=== PATIENT | female | born 1945 | race Caucasian/White ===

== ENCOUNTER 2019-10-06 19:07 | Emergency (ER) | payer MEDICARE ==
[~2019-10-06] VITALS: Ht 157.5 cm; Wt 68.2 kg
[~2019-10-06 19:07] MED LIST: CA C1TAB60 PO; CHOL100011 PO; CLON-364 PO; CYCL-259 PO; DULO20CA45 PO; GABAPENTIN PO; LANS15CA60 PO; LEVO50TA5 PO; LORA10CA PO; MONT10TA11 PO; OXYC-302 PO; TRAM50TA2 PO; TRAV5DRO EACHEYE
--- NOTE | 2019-10-06 19:31 | NUR ---
DELLA VELASCO. PT STATES THAT SHE BEGAN HAVING BACK PAIN TODAY. HAS HX OF COMPLEX REGIONAL PAIN SYNDROME AND TYPICALLY HAS FOOT PAIN, NOT BACK PAIN. PT STATES THAT SHE RAN OUT OF HER PAIN MEDICATION SO SHE DID NOT TAKE ANY PAIN MEDICATION TODAY. PT PLACED ON MONITOR AND CALL FLETCHER GIVEN TO PT. VS STABLE AT THIS TIME. WILL CONTINUE TO MONITOR PT.
[2019-10-06] MEDS ORDERED: ONDANSETRON 2MG/ML, 2ML IVPush ONE (20:00)
[2019-10-06] MEDS ORDERED: HYDROmorphone 1 MG/ML, 1ML INJ ONE ×2 (20:07→21:07)
[2019-10-06] MEDS ORDERED: ONDANSETRON 2MG/ML, 2ML ONE (20:08)
[2019-10-06] MEDS: HYDROmorphone 2 MG/ML, 1ML IVPush PRN ×2 (20:10→21:10)
[2019-10-06 20:13] LABS: BASOPHILS # (AUTO) 0.06 x10^3/uL (0-0.1); BASOPHILS % (AUTO) 1 % (0-1); EOSINOPHILS # (AUTO) 0.19 x10^3/uL (0-0.4); EOSINOPHILS % (AUTO) 3 % (1-7); LYMPHOCYTES # (AUTO) 2.28 x10^3/uL (1-3.4); LYMPHOCYTES % (AUTO) 32 % (22-44); MD NO; MEAN CORPUSCULAR HEMOGLOBIN 30.2 pg (27.0-34.8); MEAN CORPUSCULAR HGB CONC 33.2 g/dL (32.4-35.8); MONOCYTES % (AUTO) 6 % (2-9); NEUTROPHILS # (AUTO) 4.22 x10^3/uL (1.8-6.8); NEUTROPHILS % (AUTO) 59 % (42-75); PLATELET COUNT 296 x10^3/uL (130-400); RED CELL DISTRIBUTION WIDTH 13.4 % (9.6-15.2)
[2019-10-06 20:24] LABS: ALANINE AMINOTRANSFERASE 14 U/L (12-78); ALBUMIN 3.4 g/dL (3.4-5.0); ANION GAP 7 mmol/L (5-15); CALCIUM 8.7 mg/dL (8.5-10.1); CHLORIDE 108 mmol/L (98-107); CREATININE 0.97 mg/dL (0.55-1.02)
[2019-10-06 20:26] LABS: ALKALINE PHOSPHATASE 125 U/L (45-117); BILIRUBIN,TOTAL 0.4 mg/dL (0.2-1.0); TOTAL PROTEIN 7.2 g/dL (6.4-8.2)
--- NOTE | 2019-10-06 22:42 | NUR ---
PT AMBULATED WITH A WALKER. PT STATES THAT SHE FEELS "MORE SECURE" WALKING WITH A WALKER AND THAT SHE HAS ONE AT HOME. PT STATES THAT SHE FEELS "LOOPY BECAUSE OF THE PAIN MEDICATION BUT OTHERWISE FINE AND READY TO GO HOME". STANDBY ASSISTANCE WITH WALKER. PT STATES THAT HER IS AT HOME AND WILL HELP WATCH HER TONIGHT. INFORMED
[2019-10-06 22:43] VITALS: BP 115/79
== END 2019-10-06 23:18 | disposition home or self-care (01) ==
LOC: ED 20:15
DX: S39.012A Strain of muscle, fascia and tendon of lower back, initial encounter (principal); M54.41 Lumbago with sciatica, right side; M19.90 Unspecified osteoarthritis, unspecified site; X58.XXXA Exposure to other specified factors, initial encounter; Y93.89 Activity, other specified; Y92.89 Other specified places as the place of occurrence of the external cause; Y99.8 Other external cause status
CPT/HCPCS: 36415; 72110; 80053; 85025; 96374; 96375; 96376; 99284; J1170; J2405

== ENCOUNTER 2019-10-07 20:00 | Inpatient (IN) | payer MEDICARE ==
[~2019-10-07] VITALS: Ht 154.9 cm; Wt 81.2 kg
--- NOTE | 2019-10-07 20:31 | NUR ---
PT STATES THAT SHE HAS NOT BEEN ABLE TO WALK WITH HER R LEG. PT HAS HX OF CRPS AND WAS SEEN YESTERDAY FOR R SIDED BACK PAIN AND R LEG WEAKNESS. PT STATED SHE FELT BETTER WHEN SHE WAS DISCHARGED BUT THAT TODAY WHEN SHE WAS GETTING OUT OF BED SHE WAS NOT ABLE TO MOVE WITHOUT HER R LEG "COLLAPSING" ON HER. PT STATES SHE HAS INCREASED WEAKNESS AND TINGLING IN HER R LEG. PT STATES SHE USUALLY HAS TINGLING AND PAIN IN HER FEET DUE TO CRPS, HOWEVER, PT DESCRIBES THIS PAIN "DIFFERENT THAN NORMAL". PT PLACED ON MONITOR AND PA AT BEDSIDE. VS STABLE. WILL CONTINUE TO MONITOR PT.
[2019-10-07] MEDS ORDERED: HYDROmorphone 1 MG/ML, 1ML INJ ONE (20:49)
[2019-10-07] MEDS ORDERED: CYCLOBENZAPRINE 10 MG TABLET ONE (20:49)
[2019-10-07] MEDS ORDERED: ONDANSETRON 2MG/ML, 2ML ONE (20:49)
[2019-10-07 20:50] LABS: BASOPHILS # (AUTO) 0.06 x10^3/uL (0-0.1); BASOPHILS % (AUTO) 1 % (0-1); EOSINOPHILS # (AUTO) 0.18 x10^3/uL (0-0.4); EOSINOPHILS % (AUTO) 3 % (1-7); LYMPHOCYTES # (AUTO) 2.24 x10^3/uL (1-3.4); LYMPHOCYTES % (AUTO) 32 % (22-44); MD NO; MEAN CORPUSCULAR HEMOGLOBIN 30.1 pg (27.0-34.8); MEAN CORPUSCULAR VOLUME 91.3 fL (80-100); MEAN PLATELET VOLUME 7.2 fL (7.4-10.4); MONOCYTES # (AUTO) 0.41 x10^3/uL (0.2-0.8); MONOCYTES % (AUTO) 6 % (2-9); NEUTROPHILS # (AUTO) 4.08 x10^3/uL (1.8-6.8); NEUTROPHILS % (AUTO) 59 % (42-75); PLATELET COUNT 324 x10^3/uL (130-400); RED BLOOD COUNT 4.68 x10^6/uL (3.82-5.3); RED CELL DISTRIBUTION WIDTH 13.9 % (9.6-15.2)
[2019-10-07] MEDS ORDERED: CYCLOBENZAPRINE 10 MG TABLET PO ONE (21:00)
[2019-10-07] MEDS ORDERED: HYDROmorphone 1 MG/ML, 1ML INJ IVPush PRN (21:00)
[2019-10-07] MEDS ORDERED: ONDANSETRON 2MG/ML, 2ML IVPush ONE (21:00)
[2019-10-07] MEDS ORDERED: SODIUM CHLORIDE FLUSH 10ML SYR IVF ONE (21:00)
[2019-10-07 21:04] LABS: ALANINE AMINOTRANSFERASE 17 U/L (12-78); ALBUMIN 3.4 g/dL (3.4-5.0); ANION GAP 2 mmol/L (5-15); CALCIUM 8.9 mg/dL (8.5-10.1); CHLORIDE 108 mmol/L (98-107); CREATININE 1.41 mg/dL (0.55-1.02)
[2019-10-07 21:06] LABS: ALKALINE PHOSPHATASE 129 U/L (45-117); BILIRUBIN,TOTAL 0.3 mg/dL (0.2-1.0); TOTAL PROTEIN 7.8 g/dL (6.4-8.2)
[2019-10-07] MEDS ORDERED: ONDANSETRON 2MG/ML, 2ML IVPush PRN ×2 (22:00)
[2019-10-07] MEDS ORDERED: POLYETHYLENE GLYCOL 17 GM PACKET PO PRN (22:00)
[2019-10-07] MEDS ORDERED: OXYcodone/APAP 5/325MG TABLET PO PRN (22:00)
[2019-10-07] MEDS ORDERED: BISACODYL 10 MG SUPP PR PRN (22:00)
[2019-10-07] MEDS ORDERED: MORPHINE SULFATE 4 MG/ML, 1ML IVPush PRN (22:00)
[2019-10-07] MEDS ORDERED: hydrALAzine 20 MG/ML, 1ML IVPush PRN (22:00)
--- NOTE | 2019-10-07 22:16 | NUR ---
REPORT GIVEN TO ALEISHA DEL ROSARIO
[2019-10-07] MEDS ORDERED: SODIUM CHLORIDE 0.9% 1,000 ML IV SCH (22:30)
[2019-10-07] MEDS: HEPARIN 5,000 UNITS/ML, 1ML SQ SCH (23:03)
[2019-10-07 23:13] VITALS: BP 135/78
[2019-10-08 00:40] VITALS: BP 121/58
[2019-10-08] MEDS: HYDROmorphone 2 MG/ML, 1ML IVPush PRN ×6 (01:46→17:29)
[2019-10-08 05:01] LABS: MICROSCOPIC INDICATED
[2019-10-08] MEDS: HEPARIN 5,000 UNITS/ML, 1ML SQ SCH ×3 (05:30→21:16)
[2019-10-08 05:44] LABS: ANION GAP 7 mmol/L (5-15); CALCIUM 8.3 mg/dL (8.5-10.1); CHLORIDE 109 mmol/L (98-107); CREATININE 1.18 mg/dL (0.55-1.02)
[2019-10-08 07:40] VITALS: BP 129/65
[2019-10-08] MEDS: SENNA/DOCUSATE TABLET PO SCH (08:18)
[2019-10-08] MEDS: DULOXETINE 20 MG CAPSULE.DR PO SCH (08:18)
[2019-10-08] MEDS: PANTOPRAZOLE 20MG TABLET PO SCH ×2 (08:18→21:17)
[2019-10-08] MEDS: LEVOTHYROXINE 50 MCG TABLET PO SCH (08:19)
[2019-10-08] MEDS: CHOLECALCIFEROL 1,000 UNIT TABLET PO SCH (08:42)
[2019-10-08 13:56] VITALS: BP 127/74
[2019-10-08 20:11] VITALS: BP 108/70
[2019-10-08] MEDS: morphine SULFATE 10 MG/ML, 1ML IVPush PRN (21:17)
[2019-10-08] MEDS ORDERED: GABAPENTIN 300 MG CAPSULE PO ONE (21:30)
[2019-10-08] MEDS: SODIUM CHLORIDE 0.9% 1,000 ML IV SCH (22:30)
[2019-10-09 03:00] VITALS: BP 132/73
[2019-10-09] MEDS: HEPARIN 5,000 UNITS/ML, 1ML SQ SCH ×3 (05:33→21:38)
[2019-10-09 05:38] LABS: ANION GAP 6 mmol/L (5-15); CALCIUM 8.2 mg/dL (8.5-10.1); CHLORIDE 111 mmol/L (98-107)
[2019-10-09 05:40] LABS: CREATININE 0.95 mg/dL (0.55-1.02)
[2019-10-09 05:42] LABS: BASOPHILS # (AUTO) 0.02 x10^3/uL (0-0.1); BASOPHILS % (AUTO) 0 % (0-1); EOSINOPHILS # (AUTO) 0.16 x10^3/uL (0-0.4); EOSINOPHILS % (AUTO) 3 % (1-7); LYMPHOCYTES # (AUTO) 1.98 x10^3/uL (1-3.4); LYMPHOCYTES % (AUTO) 32 % (22-44); MD NO; MEAN CORPUSCULAR HEMOGLOBIN 29.8 pg (27.0-34.8); MEAN CORPUSCULAR HGB CONC 32.6 g/dL (32.4-35.8); MEAN CORPUSCULAR VOLUME 91.4 fL (80-100); MONOCYTES # (AUTO) 0.37 x10^3/uL (0.2-0.8); MONOCYTES % (AUTO) 6 % (2-9); NEUTROPHILS # (AUTO) 3.61 x10^3/uL (1.8-6.8); NEUTROPHILS % (AUTO) 59 % (42-75); PLATELET COUNT 242 x10^3/uL (130-400); RED BLOOD COUNT 3.98 x10^6/uL (3.82-5.3); RED CELL DISTRIBUTION WIDTH 13.4 % (9.6-15.2)
[2019-10-09 06:47] VITALS: BP 121/73
[2019-10-09] MEDS: LEVOTHYROXINE 50 MCG TABLET PO SCH (08:47)
[2019-10-09] MEDS: SENNA/DOCUSATE TABLET PO SCH (08:48)
[2019-10-09] MEDS: PANTOPRAZOLE 20MG TABLET PO SCH ×2 (08:48→21:37)
[2019-10-09] MEDS: CHOLECALCIFEROL 1,000 UNIT TABLET PO SCH (08:48)
[2019-10-09] MEDS: DULOXETINE 20 MG CAPSULE.DR PO SCH (08:48)
[2019-10-09 13:40] VITALS: BP 125/66
[2019-10-09] MEDS ORDERED: GADOTERATE 10 MMOL/20 ML SYR ONE (14:30)
[2019-10-09] MEDS: SODIUM CHLORIDE 0.9% 1,000 ML IV SCH (17:22)
[2019-10-09 19:06] VITALS: BP 143/77
[2019-10-09] MEDS: morphine SULFATE 10 MG/ML, 1ML IVPush PRN (21:49)
[2019-10-10 01:44] VITALS: BP 151/81
[2019-10-10] MEDS: HEPARIN 5,000 UNITS/ML, 1ML SQ SCH ×3 (05:18→20:52)
[2019-10-10 05:38] LABS: ANION GAP 8 mmol/L (5-15); CALCIUM 8.8 mg/dL (8.5-10.1); CHLORIDE 109 mmol/L (98-107); CREATININE 0.92 mg/dL (0.55-1.02)
[2019-10-10 05:46] LABS: BASOPHILS # (AUTO) 0.02 x10^3/uL (0-0.1); BASOPHILS % (AUTO) 0 % (0-1); EOSINOPHILS # (AUTO) 0.15 x10^3/uL (0-0.4); EOSINOPHILS % (AUTO) 3 % (1-7); LYMPHOCYTES # (AUTO) 1.85 x10^3/uL (1-3.4); LYMPHOCYTES % (AUTO) 33 % (22-44); MD NO; MEAN CORPUSCULAR HEMOGLOBIN 30.1 pg (27.0-34.8); MEAN CORPUSCULAR HGB CONC 32.9 g/dL (32.4-35.8); MEAN CORPUSCULAR VOLUME 91.5 fL (80-100); MEAN PLATELET VOLUME 7.3 fL (7.4-10.4); MONOCYTES # (AUTO) 0.38 x10^3/uL (0.2-0.8); MONOCYTES % (AUTO) 7 % (2-9); NEUTROPHILS # (AUTO) 3.14 x10^3/uL (1.8-6.8); NEUTROPHILS % (AUTO) 57 % (42-75); PLATELET COUNT 241 x10^3/uL (130-400); RED BLOOD COUNT 3.94 x10^6/uL (3.82-5.3); RED CELL DISTRIBUTION WIDTH 13.3 % (9.6-15.2)
[2019-10-10 06:51] VITALS: BP 147/72
[2019-10-10] MEDS: morphine SULFATE 10 MG/ML, 1ML IVPush PRN (08:53)
[2019-10-10] MEDS: DULOXETINE 20 MG CAPSULE.DR PO SCH (08:57)
[2019-10-10] MEDS: LEVOTHYROXINE 50 MCG TABLET PO SCH (08:57)
[2019-10-10] MEDS: PANTOPRAZOLE 20MG TABLET PO SCH ×2 (08:57→20:52)
[2019-10-10] MEDS: SENNA/DOCUSATE TABLET PO SCH (09:01)
[2019-10-10] MEDS: CHOLECALCIFEROL 1,000 UNIT TABLET PO SCH (09:05)
[2019-10-10 12:50] VITALS: BP 129/71
[2019-10-10] MEDS: OXYcodone/APAP 5/325MG TABLET PO PRN ×2 (13:01→18:44)
[2019-10-10] MEDS: MORPHINE SULFATE 4 MG/ML, 1ML IVPush PRN (16:07)
[2019-10-10 20:52] VITALS: BP 148/78
[2019-10-11] MEDS: MORPHINE SULFATE 4 MG/ML, 1ML IVPush PRN (00:06)
[2019-10-11] MEDS: OXYcodone/APAP 5/325MG TABLET PO PRN ×4 (01:18→21:38)
[2019-10-11] MEDS ORDERED: GABAPENTIN 300 MG CAPSULE PO ONE (02:00)
[2019-10-11 03:17] VITALS: BP 157/91
[2019-10-11] MEDS: HEPARIN 5,000 UNITS/ML, 1ML SQ SCH ×3 (06:00→21:39)
[2019-10-11 07:08] VITALS: BP 150/85
[2019-10-11] MEDS: CHOLECALCIFEROL 1,000 UNIT TABLET PO SCH (09:30)
[2019-10-11] MEDS: LEVOTHYROXINE 50 MCG TABLET PO SCH (09:30)
[2019-10-11] MEDS: PANTOPRAZOLE 20MG TABLET PO SCH ×2 (09:31→21:37)
[2019-10-11] MEDS: DULOXETINE 20 MG CAPSULE.DR PO SCH ×2 (09:31→11:46)
[2019-10-11] MEDS: LIDODERM 5% PATCH TD SCH (09:32)
[2019-10-11] MEDS: SENNA/DOCUSATE TABLET PO SCH (09:32)
[2019-10-11] MEDS ORDERED: GABAPENTIN 300 MG CAPSULE PO SCH (10:00)
[2019-10-11 12:50] VITALS: BP 112/71
[2019-10-11 16:30] LABS: INTERNATIONAL NORMALIZED RATIO 0.92 (0.93-1.1); PROTHROMBIN TIME 9.7 Seconds (9.6-11.5)
[2019-10-11 21:31] VITALS: BP 152/69
[2019-10-11] MEDS: GABAPENTIN 300 MG CAPSULE PO SCH (21:37)
[2019-10-12 01:30] VITALS: BP 143/76
[2019-10-12] MEDS: HEPARIN 5,000 UNITS/ML, 1ML SQ SCH ×3 (05:16→22:00)
[2019-10-12] MEDS: OXYcodone/APAP 5/325MG TABLET PO PRN (07:22)
[2019-10-12] MEDS: SENNA/DOCUSATE TABLET PO SCH (07:24)
[2019-10-12] MEDS: CHOLECALCIFEROL 1,000 UNIT TABLET PO SCH (07:24)
[2019-10-12] MEDS ORDERED: methylPREDNISolone *ACETATE* 40 MG/ML ONE (07:26)
[2019-10-12] MEDS ORDERED: VANCOMYCIN 1,000 MG ONE (07:26)
[2019-10-12] MEDS ORDERED: BACITRACIN OINT 500U/GM, 15 GM ONE (07:26)
[2019-10-12] MEDS ORDERED: BACITRACIN 50,000 UNIT ONE (07:26)
[2019-10-12] MEDS ORDERED: BUPIVACAINE/PF-EPI 0.5% 1:200K ONE (07:26)
[2019-10-12] MEDS: DULOXETINE 20 MG CAPSULE.DR PO SCH (07:29)
[2019-10-12] MEDS: LEVOTHYROXINE 50 MCG TABLET PO SCH (07:29)
[2019-10-12] MEDS: PANTOPRAZOLE 20MG TABLET PO SCH ×2 (07:29→22:59)
[2019-10-12] MEDS: LIDODERM 5% PATCH TD SCH (07:30)
[2019-10-12 07:40] VITALS: BP 174/85
[2019-10-12] MEDS ORDERED: CHLORHEXIDINE 15 ML UDC ONE (12:19)
[2019-10-12] MEDS ORDERED: ACETAMINOPHEN 500 MG TABLET PO ONE (12:30)
[2019-10-12] MEDS ORDERED: GABAPENTIN 300 MG CAPSULE PO ONE (12:30)
[2019-10-12] MEDS ORDERED: CHLORHEXIDINE 15 ML UDC MM ONE (12:30)
[2019-10-12] MEDS ORDERED: MIDAZOLAM 1 MG/ML, 2ML ONE (13:09)
[2019-10-12] MEDS ORDERED: FENTANYL PF 250 MCG/5ML ONE ×2 (13:09→15:47)
[2019-10-12] MEDS ORDERED: CLINDAMYCIN 150 MG/ML, 6ML ONE (14:02)
[2019-10-12] MEDS ORDERED: DIAZEPAM 5 MG/ML, 2ML IVPush PRN (14:30)
[2019-10-12] MEDS ORDERED: ALBUTEROL SULFATE 2.5 MG/3 ML NPPB PRN (14:30)
[2019-10-12] MEDS ORDERED: MEPERIDINE/PF 25MG/0.5ML IVPush PRN (14:30)
[2019-10-12] MEDS ORDERED: LABETALOL 5MG/ML, 20ML IV PRN (14:30)
[2019-10-12] MEDS ORDERED: PROMETHAZINE 25 MG/ML, 1ML IV PRN (14:30)
[2019-10-12] MEDS ORDERED: FENTANYL PF 100 MCG/2ML IV PRN (14:30)
[2019-10-12] MEDS ORDERED: hydrALAzine 20 MG/ML, 1ML IV PRN (14:30)
[2019-10-12] MEDS ORDERED: OXYcodone 5 MG/5 ML ORAL.SOL UDC PO PRN (14:30)
[2019-10-12] MEDS ORDERED: VANCOMYCIN 1,000 MG IM ONE (14:56)
[2019-10-12] MEDS ORDERED: THROMBIN 5,000 UNIT VIAL TP ONE (17:58)
[2019-10-12] MEDS ORDERED: GLYCOPYRROLATE 0.2MG/1ML, 5ML ONE (18:40)
[2019-10-12] MEDS ORDERED: DEXAMETHASONE 4 MG/ML, 1ML ONE (18:40)
[2019-10-12] MEDS ORDERED: CEFAZOLIN 1,000 MG ONE (18:40)
[2019-10-12] MEDS ORDERED: ONDANSETRON 2MG/ML, 2ML ONE (18:40)
[2019-10-12] MEDS ORDERED: NEOSTIGMINE 1 MG/ML, 10ML ONE (18:40)
[2019-10-12] MEDS ORDERED: SUCCINYLCHOLINE 20 MG/ML, 10ML ONE (18:40)
[2019-10-12] MEDS ORDERED: ROCURONIUM 10MG/ML,5ML ONE (18:40)
[2019-10-12] MEDS ORDERED: PROPOFOL 10 MG/ML, 20ML ONE (18:40)
[2019-10-12] MEDS ORDERED: SENNA/DOCUSATE TABLET PO PRN (19:00)
[2019-10-12] MEDS ORDERED: ONDANSETRON 2MG/ML, 2ML IVPush PRN (19:00)
[2019-10-12] MEDS ORDERED: MAGNESIUM HYDROXIDE 8%, 30ML UDC PO PRN (19:00)
[2019-10-12] MEDS ORDERED: PHARMACY MAY ADJ FOR RENAL FX MC PRN (19:00)
[2019-10-12] MEDS ORDERED: DIPHENHYDRAMINE 50 MG CAPSULE PO PRN (19:00)
[2019-10-12] MEDS ORDERED: BISACODYL 10 MG SUPP PR PRN (19:00)
[2019-10-12] MEDS ORDERED: PROMETHAZINE 25 MG/ML, 1ML ONE (19:06)
[2019-10-12] MEDS ORDERED: HYDROmorphone 1 MG/ML, 1ML INJ ONE ×2 (19:06→20:17)
[2019-10-12] MEDS: HYDROmorphone 2 MG/ML, 1ML IVPush PRN ×4 (19:08→20:27)
[2019-10-12] MEDS ORDERED: OXYcodone 5 MG/5 ML ORAL.SOL UDC ONE (19:55)
[2019-10-12] MEDS ORDERED: DIAZEPAM 5 MG/ML, 2ML ONE (20:11)
[2019-10-12] MEDS ORDERED: HYDROmorphone PCA 30 MG/30 ML IV PRN (21:00)
[2019-10-12] MEDS: CYCLOBENZAPRINE 10 MG TABLET PO SCH (22:59)
[2019-10-12] MEDS: GABAPENTIN 300 MG CAPSULE PO SCH (22:59)
[2019-10-12] MEDS: CLINDAMYCIN PMX 600MG/50ML 50 ML IV SCH (23:16)
[2019-10-13] VITALS (7 sets, daily range): BP systolic 90–107; BP diastolic 55–72
[2019-10-13] MEDS: OXYcodone/APAP 5/325MG TABLET PO PRN ×4 (00:05→22:03)
[2019-10-13 05:19] LABS: BASOPHILS # (AUTO) 0.02 x10^3/uL (0-0.1); BASOPHILS % (AUTO) 0 % (0-1); EOSINOPHILS % (AUTO) 0 % (1-7); LYMPHOCYTES # (AUTO) 0.99 x10^3/uL (1-3.4); LYMPHOCYTES % (AUTO) 11 % (22-44); MD NO; MEAN CORPUSCULAR HEMOGLOBIN 29.8 pg (27.0-34.8); MEAN CORPUSCULAR HGB CONC 32.4 g/dL (32.4-35.8); MEAN PLATELET VOLUME 6.7 fL (7.4-10.4); MONOCYTES # (AUTO) 0.52 x10^3/uL (0.2-0.8); MONOCYTES % (AUTO) 6 % (2-9); NEUTROPHILS # (AUTO) 7.79 x10^3/uL (1.8-6.8); NEUTROPHILS % (AUTO) 84 % (42-75); PLATELET COUNT 232 x10^3/uL (130-400); RED BLOOD COUNT 3.81 x10^6/uL (3.82-5.3); RED CELL DISTRIBUTION WIDTH 14.3 % (9.6-15.2)
[2019-10-13 05:26] LABS: ANION GAP 3 mmol/L (5-15); CALCIUM 8.1 mg/dL (8.5-10.1); CHLORIDE 105 mmol/L (98-107); CREATININE 1.15 mg/dL (0.55-1.02)
[2019-10-13] MEDS: CYCLOBENZAPRINE 10 MG TABLET PO SCH ×3 (05:58→23:54)
[2019-10-13] MEDS: CLINDAMYCIN PMX 600MG/50ML 50 ML IV SCH ×3 (07:52→23:54)
[2019-10-13] MEDS: DULOXETINE 20 MG CAPSULE.DR PO SCH (11:09)
[2019-10-13] MEDS: LEVOTHYROXINE 50 MCG TABLET PO SCH (11:10)
[2019-10-13] MEDS: PANTOPRAZOLE 20MG TABLET PO SCH ×2 (11:10→19:51)
[2019-10-13] MEDS: CHOLECALCIFEROL 1,000 UNIT TABLET PO SCH (11:10)
[2019-10-13] MEDS: SENNA/DOCUSATE TABLET PO SCH (11:10)
[2019-10-13] MEDS: LIDODERM 5% PATCH TD SCH (11:11)
[2019-10-13] MEDS: SODIUM CHLORIDE 0.9% 1,000 ML IV SCH ×2 (14:30→23:54)
[2019-10-13] MEDS: GABAPENTIN 300 MG CAPSULE PO SCH (19:50)
[2019-10-14 00:06] VITALS: BP 95/68
[2019-10-14] MEDS: OXYcodone/APAP 5/325MG TABLET PO PRN ×2 (05:19→16:38)
[2019-10-14 05:49] LABS: ANION GAP 5 mmol/L (5-15); CHLORIDE 107 mmol/L (98-107); CREATININE 1.38 mg/dL (0.55-1.02)
[2019-10-14 05:54] LABS: BASOPHILS # (AUTO) 0.02 x10^3/uL (0-0.1); BASOPHILS % (AUTO) 0 % (0-1); EOSINOPHILS # (AUTO) 0.15 x10^3/uL (0-0.4); EOSINOPHILS % (AUTO) 2 % (1-7); LYMPHOCYTES # (AUTO) 1.45 x10^3/uL (1-3.4); LYMPHOCYTES % (AUTO) 19 % (22-44); MD NO; MEAN CORPUSCULAR HEMOGLOBIN 31.1 pg (27.0-34.8); MEAN CORPUSCULAR HGB CONC 33.5 g/dL (32.4-35.8); MEAN CORPUSCULAR VOLUME 92.7 fL (80-100); MEAN PLATELET VOLUME 7.2 fL (7.4-10.4); MONOCYTES # (AUTO) 0.55 x10^3/uL (0.2-0.8); MONOCYTES % (AUTO) 7 % (2-9); NEUTROPHILS % (AUTO) 71 % (42-75); PLATELET COUNT 195 x10^3/uL (130-400); RED BLOOD COUNT 3.13 x10^6/uL (3.82-5.3); RED CELL DISTRIBUTION WIDTH 14.3 % (9.6-15.2)
[2019-10-14 06:42] VITALS: BP 115/68
[2019-10-14] MEDS: LEVOTHYROXINE 50 MCG TABLET PO SCH (08:07)
[2019-10-14] MEDS: DULOXETINE 20 MG CAPSULE.DR PO SCH (08:07)
[2019-10-14] MEDS: PANTOPRAZOLE 20MG TABLET PO SCH ×2 (08:07→21:15)
[2019-10-14] MEDS: CHOLECALCIFEROL 1,000 UNIT TABLET PO SCH (08:08)
[2019-10-14] MEDS: CLINDAMYCIN PMX 600MG/50ML 50 ML IV SCH ×2 (08:08→15:35)
[2019-10-14] MEDS: SENNA/DOCUSATE TABLET PO SCH (08:09)
[2019-10-14] MEDS: LIDODERM 5% PATCH TD SCH (08:09)
[2019-10-14] MEDS: CYCLOBENZAPRINE 10 MG TABLET PO SCH ×2 (08:12→15:35)
[2019-10-14] MEDS: SODIUM CHLORIDE 0.9% 1,000 ML IV SCH ×2 (10:58→21:14)
[2019-10-14] MEDS ORDERED: SODIUM CHLORIDE 0.9%, 250ML IVBOLUS ONE (11:00)
[2019-10-14 12:06] VITALS: BP 116/70
[2019-10-14 16:03] LABS: CHLORIDE,URINE RANDOM 63 mmol/L; POTASSIUM,URINE RANDOM 20 mmol/L; SODIUM,URINE RANDOM 54 mmol/L
[2019-10-14 18:17] VITALS: BP 111/66
[2019-10-14] MEDS: GABAPENTIN 300 MG CAPSULE PO SCH (21:15)
[2019-10-15 00:02] VITALS: BP 131/70
[2019-10-15] MEDS: CYCLOBENZAPRINE 10 MG TABLET PO SCH (00:04)
[2019-10-15 05:03] LABS: BASOPHILS # (AUTO) 0.05 x10^3/uL (0-0.1); BASOPHILS % (AUTO) 1 % (0-1); EOSINOPHILS # (AUTO) 0.15 x10^3/uL (0-0.4); EOSINOPHILS % (AUTO) 2 % (1-7); LYMPHOCYTES # (AUTO) 1.08 x10^3/uL (1-3.4); LYMPHOCYTES % (AUTO) 14 % (22-44); MD NO; MEAN CORPUSCULAR HEMOGLOBIN 30.3 pg (27.0-34.8); MEAN CORPUSCULAR HGB CONC 32.6 g/dL (32.4-35.8); MEAN CORPUSCULAR VOLUME 92.7 fL (80-100); MEAN PLATELET VOLUME 7.6 fL (7.4-10.4); MONOCYTES # (AUTO) 0.57 x10^3/uL (0.2-0.8); MONOCYTES % (AUTO) 8 % (2-9); NEUTROPHILS # (AUTO) 5.73 x10^3/uL (1.8-6.8); NEUTROPHILS % (AUTO) 76 % (42-75); PLATELET COUNT 178 x10^3/uL (130-400); RED BLOOD COUNT 3.05 x10^6/uL (3.82-5.3); RED CELL DISTRIBUTION WIDTH 14.5 % (9.6-15.2)
[2019-10-15 05:08] LABS: ANION GAP 5 mmol/L (5-15); CALCIUM 8.2 mg/dL (8.5-10.1); CHLORIDE 107 mmol/L (98-107)
[2019-10-15] MEDS: CLINDAMYCIN PMX 600MG/50ML 50 ML IV SCH ×3 (06:16→16:52)
[2019-10-15] MEDS: SODIUM CHLORIDE 0.9% 1,000 ML IV SCH ×2 (06:18→16:53)
[2019-10-15 06:42] VITALS: BP 139/78
[2019-10-15] MEDS: DULOXETINE 20 MG CAPSULE.DR PO SCH (08:11)
[2019-10-15] MEDS: SENNA/DOCUSATE TABLET PO SCH (08:11)
[2019-10-15] MEDS: LEVOTHYROXINE 50 MCG TABLET PO SCH (08:11)
[2019-10-15] MEDS: LIDODERM 5% PATCH TD SCH (08:12)
[2019-10-15] MEDS: CHOLECALCIFEROL 1,000 UNIT TABLET PO SCH (08:13)
[2019-10-15] MEDS: PANTOPRAZOLE 20MG TABLET PO SCH ×2 (08:29→19:40)
[2019-10-15] MEDS ORDERED: TIZANIDINE 4MG TABLET PO PRN (09:30)
[2019-10-15 12:08] VITALS: BP 135/76
--- NOTE | 2019-10-15 14:38 | NUR ---
Rec: PHLEBOTOMY DIRECTOR intervention in a [facility]. Addendum: 10/15/19 at 1438 by Terrie KAISER Amended: Links added.
[2019-10-15] MEDS: OXYcodone/APAP 5/325MG TABLET PO PRN (19:40)
[2019-10-15] MEDS: GABAPENTIN 300 MG CAPSULE PO SCH (19:40)
[2019-10-15] MEDS: LIDODERM REMOVE PATCH NOTE XX SCH (19:41)
[2019-10-15 19:48] VITALS: BP 148/74
[2019-10-16 01:49] VITALS: BP 125/81
[2019-10-16] MEDS: SODIUM CHLORIDE 0.9% 1,000 ML IV SCH ×2 (02:46→15:55)
[2019-10-16] MEDS: OXYcodone/APAP 5/325MG TABLET PO PRN ×3 (04:44→19:46)
[2019-10-16 05:25] LABS: BASOPHILS # (AUTO) 0.05 x10^3/uL (0-0.1); BASOPHILS % (AUTO) 1 % (0-1); EOSINOPHILS % (AUTO) 1 % (1-7); LYMPHOCYTES # (AUTO) 1.22 x10^3/uL (1-3.4); LYMPHOCYTES % (AUTO) 16 % (22-44); MD NO; MEAN CORPUSCULAR HEMOGLOBIN 30.4 pg (27.0-34.8); MEAN CORPUSCULAR HGB CONC 33.1 g/dL (32.4-35.8); MEAN CORPUSCULAR VOLUME 91.9 fL (80-100); MEAN PLATELET VOLUME 7.7 fL (7.4-10.4); MONOCYTES % (AUTO) 8 % (2-9); NEUTROPHILS # (AUTO) 5.49 x10^3/uL (1.8-6.8); NEUTROPHILS % (AUTO) 74 % (42-75); PLATELET COUNT 177 x10^3/uL (130-400); RED BLOOD COUNT 3.09 x10^6/uL (3.82-5.3); RED CELL DISTRIBUTION WIDTH 13.9 % (9.6-15.2)
[2019-10-16 05:26] LABS: ANION GAP 5 mmol/L (5-15); CALCIUM 8.5 mg/dL (8.5-10.1); CHLORIDE 106 mmol/L (98-107); CREATININE 0.91 mg/dL (0.55-1.02)
[2019-10-16 08:17] VITALS: BP 118/72
[2019-10-16] MEDS: LEVOTHYROXINE 50 MCG TABLET PO SCH (08:42)
[2019-10-16] MEDS: CHOLECALCIFEROL 1,000 UNIT TABLET PO SCH (08:42)
[2019-10-16] MEDS: DULOXETINE 20 MG CAPSULE.DR PO SCH (08:42)
[2019-10-16] MEDS: PANTOPRAZOLE 20MG TABLET PO SCH ×2 (08:42→19:45)
[2019-10-16] MEDS: LIDODERM 5% PATCH TD SCH (08:43)
[2019-10-16] MEDS: SENNA/DOCUSATE TABLET PO SCH (09:00)
[2019-10-16 12:35] VITALS: BP 126/57
[2019-10-16] MEDS: GABAPENTIN 300 MG CAPSULE PO SCH (19:45)
[2019-10-16 20:02] VITALS: BP 154/78
[2019-10-16] MEDS: LIDODERM REMOVE PATCH NOTE XX SCH (20:57)
[2019-10-16 22:12] LABS: BASOPHILS # (AUTO) 0.01 x10^3/uL (0-0.1); BASOPHILS % (AUTO) 0 % (0-1); EOSINOPHILS # (AUTO) 0.07 x10^3/uL (0-0.4); EOSINOPHILS % (AUTO) 1 % (1-7); LYMPHOCYTES # (AUTO) 0.53 x10^3/uL (1-3.4); LYMPHOCYTES % (AUTO) 8 % (22-44); MD NO; MEAN CORPUSCULAR HEMOGLOBIN 30.9 pg (27.0-34.8); MEAN CORPUSCULAR HGB CONC 34.1 g/dL (32.4-35.8); MEAN CORPUSCULAR VOLUME 90.7 fL (80-100); MEAN PLATELET VOLUME 7.6 fL (7.4-10.4); MONOCYTES # (AUTO) 0.41 x10^3/uL (0.2-0.8); MONOCYTES % (AUTO) 6 % (2-9); NEUTROPHILS # (AUTO) 5.89 x10^3/uL (1.8-6.8); NEUTROPHILS % (AUTO) 85 % (42-75); PLATELET COUNT 205 x10^3/uL (130-400); RED BLOOD COUNT 3.01 x10^6/uL (3.82-5.3)
[2019-10-16] MEDS ORDERED: FUROSEMIDE 40 MG/4 ML IV ONE (23:00)
[2019-10-17 00:46] VITALS: BP 143/65
[2019-10-17] MEDS: OXYcodone/APAP 5/325MG TABLET PO PRN ×3 (05:38→18:05)
[2019-10-17 05:43] LABS: BASOPHILS # (AUTO) 0.02 x10^3/uL (0-0.1); BASOPHILS % (AUTO) 0 % (0-1); EOSINOPHILS # (AUTO) 0.12 x10^3/uL (0-0.4); EOSINOPHILS % (AUTO) 2 % (1-7); LYMPHOCYTES % (AUTO) 12 % (22-44); MD NO; MEAN CORPUSCULAR HEMOGLOBIN 30.5 pg (27.0-34.8); MEAN CORPUSCULAR HGB CONC 33.1 g/dL (32.4-35.8); MEAN CORPUSCULAR VOLUME 92.1 fL (80-100); MEAN PLATELET VOLUME 7.3 fL (7.4-10.4); MONOCYTES # (AUTO) 0.61 x10^3/uL (0.2-0.8); MONOCYTES % (AUTO) 9 % (2-9); NEUTROPHILS # (AUTO) 5.28 x10^3/uL (1.8-6.8); NEUTROPHILS % (AUTO) 77 % (42-75); PLATELET COUNT 227 x10^3/uL (130-400); RED BLOOD COUNT 3.24 x10^6/uL (3.82-5.3); RED CELL DISTRIBUTION WIDTH 14.1 % (9.6-15.2)
[2019-10-17 05:54] LABS: ANION GAP 8 mmol/L (5-15); CALCIUM 8.6 mg/dL (8.5-10.1); CHLORIDE 99 mmol/L (98-107)
[2019-10-17 05:55] LABS: CREATININE 0.89 mg/dL (0.55-1.02)
[2019-10-17 06:28] VITALS: BP 117/71
[2019-10-17] MEDS: LIDODERM 5% PATCH TD SCH ×2 (09:00→21:07)
[2019-10-17] MEDS: CHOLECALCIFEROL 1,000 UNIT TABLET PO SCH (09:00)
[2019-10-17] MEDS: LEVOTHYROXINE 50 MCG TABLET PO SCH (09:06)
[2019-10-17] MEDS: SENNA/DOCUSATE TABLET PO SCH (09:07)
[2019-10-17] MEDS: DULOXETINE 20 MG CAPSULE.DR PO SCH (09:07)
[2019-10-17] MEDS: PANTOPRAZOLE 20MG TABLET PO SCH ×2 (09:07→20:59)
[2019-10-17] MEDS: SODIUM CHLORIDE 0.9% 1,000 ML IV SCH ×3 (10:00→20:00)
[2019-10-17 12:49] VITALS: BP 105/66
[2019-10-17 18:45] VITALS: BP 154/80
[2019-10-17] MEDS: LIDODERM REMOVE PATCH NOTE XX SCH (20:15)
[2019-10-17] MEDS: GABAPENTIN 300 MG CAPSULE PO SCH (20:59)
[2019-10-18 01:17] VITALS: BP 126/66
[2019-10-18] MEDS: OXYcodone/APAP 5/325MG TABLET PO PRN ×4 (04:03→22:35)
[2019-10-18] MEDS: SODIUM CHLORIDE 0.9% 1,000 ML IV SCH (06:21)
[2019-10-18 06:50] VITALS: BP 120/56
[2019-10-18 06:53] LABS: BASOPHILS # (AUTO) 0.02 x10^3/uL (0-0.1); BASOPHILS % (AUTO) 0 % (0-1); EOSINOPHILS # (AUTO) 0.15 x10^3/uL (0-0.4); EOSINOPHILS % (AUTO) 3 % (1-7); LYMPHOCYTES # (AUTO) 0.91 x10^3/uL (1-3.4); LYMPHOCYTES % (AUTO) 15 % (22-44); MD NO; MEAN CORPUSCULAR HGB CONC 32.8 g/dL (32.4-35.8); MEAN CORPUSCULAR VOLUME 91.5 fL (80-100); MEAN PLATELET VOLUME 7.4 fL (7.4-10.4); MONOCYTES # (AUTO) 0.57 x10^3/uL (0.2-0.8); MONOCYTES % (AUTO) 9 % (2-9); NEUTROPHILS # (AUTO) 4.44 x10^3/uL (1.8-6.8); NEUTROPHILS % (AUTO) 73 % (42-75); PLATELET COUNT 249 x10^3/uL (130-400); RED BLOOD COUNT 3.04 x10^6/uL (3.82-5.3)
[2019-10-18 07:04] LABS: ANION GAP 7 mmol/L (5-15); CALCIUM 8.2 mg/dL (8.5-10.1); CHLORIDE 103 mmol/L (98-107)
[2019-10-18 07:05] LABS: CREATININE 0.86 mg/dL (0.55-1.02)
[2019-10-18] MEDS: DULOXETINE 20 MG CAPSULE.DR PO SCH (09:29)
[2019-10-18] MEDS: CHOLECALCIFEROL 1,000 UNIT TABLET PO SCH (09:30)
[2019-10-18] MEDS: SENNA/DOCUSATE TABLET PO SCH (09:30)
[2019-10-18] MEDS: LEVOTHYROXINE 50 MCG TABLET PO SCH (09:31)
[2019-10-18] MEDS: PANTOPRAZOLE 20MG TABLET PO SCH ×2 (09:31→20:31)
[2019-10-18 13:59] VITALS: BP 124/59
[2019-10-18 18:24] VITALS: BP 131/73
[2019-10-18] MEDS: LIDODERM REMOVE PATCH NOTE XX SCH (20:15)
[2019-10-18] MEDS: GABAPENTIN 300 MG CAPSULE PO SCH (20:31)
[2019-10-19 03:21] VITALS: BP 122/72
[2019-10-19] MEDS: OXYcodone/APAP 5/325MG TABLET PO PRN ×2 (04:57→11:23)
[2019-10-19 06:02] LABS: EOSINOPHILS # (AUTO) 0.18 x10^3/uL (0-0.4); MD NO
[2019-10-19 06:06] LABS: ALANINE AMINOTRANSFERASE 28 U/L (12-78); ALBUMIN 2.3 g/dL (3.4-5.0); ANION GAP 5 mmol/L (5-15); CALCIUM 8.5 mg/dL (8.5-10.1); CHLORIDE 105 mmol/L (98-107); CREATININE 0.95 mg/dL (0.55-1.02)
[2019-10-19 06:08] LABS: ALKALINE PHOSPHATASE 96 U/L (45-117); BILIRUBIN,TOTAL 0.4 mg/dL (0.2-1.0); TOTAL PROTEIN 6.3 g/dL (6.4-8.2)
[2019-10-19 08:00] VITALS: BP 116/74
[2019-10-19] MEDS: LEVOTHYROXINE 50 MCG TABLET PO SCH (08:31)
[2019-10-19] MEDS: CHOLECALCIFEROL 1,000 UNIT TABLET PO SCH (08:31)
[2019-10-19] MEDS: SENNA/DOCUSATE TABLET PO SCH (08:31)
[2019-10-19] MEDS: DULOXETINE 20 MG CAPSULE.DR PO SCH (08:31)
[2019-10-19] MEDS: PANTOPRAZOLE 20MG TABLET PO SCH (08:32)
[2019-10-19] MEDS: LIDODERM 5% PATCH TD SCH (09:00)
[2019-10-19 09:24] LABS: BASOPHILS # (AUTO) 0.03 x10^3/uL (0-0.1); BASOPHILS % (AUTO) 1 % (0-1); EOSINOPHILS % (AUTO) 3 % (1-7); LYMPHOCYTES # (AUTO) 1.38 x10^3/uL (1-3.4); LYMPHOCYTES % (AUTO) 23 % (22-44); MEAN CORPUSCULAR HGB CONC 32.4 g/dL (32.4-35.8); MEAN CORPUSCULAR VOLUME 92.6 fL (80-100); MONOCYTES # (AUTO) 0.46 x10^3/uL (0.2-0.8); MONOCYTES % (AUTO) 8 % (2-9); NEUTROPHILS # (AUTO) 3.87 x10^3/uL (1.8-6.8); NEUTROPHILS % (AUTO) 65 % (42-75); PLATELET COUNT 308 x10^3/uL (130-400); RED BLOOD COUNT 3.13 x10^6/uL (3.82-5.3); RED CELL DISTRIBUTION WIDTH 14.2 % (9.6-15.2)
[2019-10-19] MEDS ORDERED: GABA300C PO (10:06)
[2019-10-19] MEDS ORDERED: SENN-193 PO (10:06)
[2019-10-19] MEDS ORDERED: CLON-364 PO (10:06)
[2019-10-19] MEDS ORDERED: POLY17PO5 PO (10:06)
[2019-10-19] MEDS ORDERED: CHOL10003 PO (10:06)
[2019-10-19] MEDS ORDERED: LEVO50TA PO (10:06)
[2019-10-19] MEDS ORDERED: TIZA4TAB2 PO (10:06)
[2019-10-19] MEDS ORDERED: PANT20TA3 PO (10:06)
[2019-10-19] MEDS ORDERED: DULO20CA18 PO (10:06)
[2019-10-19] MEDS ORDERED: OXYcodone/APAP 5/325MG PO (10:06)
[2019-10-19] MEDS ORDERED: BISA10SU4 PR (10:06)
[2019-10-19] MEDS ORDERED: TRAM50TA2 PO (10:06)
[2019-10-19 14:37] VITALS: BP 102/63
== END 2019-10-19 15:09 | DRG 459 ==
LOC: ED 21:07 → EDIP 22:03 → 3N 22:22 → 4NE 10-12 21:50
PROVIDERS: ADMIT Internal Medicine; ATTEND Hospitalist
PROC: 0SB20ZZ Excision of Lumbar Vertebral Disc, Open Approach (ICD-10-PCS; 2019-10-12)
PROC: 01NB0ZZ Release Lumbar Nerve, Open Approach (ICD-10-PCS; 2019-10-12)
PROC: 0QP004Z Removal of Internal Fixation Device from Lumbar Vertebra, Open Approach (ICD-10-PCS; 2019-10-12)
PROC: 0QP104Z Removal of Internal Fixation Device from Sacrum, Open Approach (ICD-10-PCS; 2019-10-12)
PROC: 00PV0MZ Removal of Neurostimulator Lead from Spinal Cord, Open Approach (ICD-10-PCS; 2019-10-12)
PROC: 3E0U0GB Introduction of Recombinant Bone Morphogenetic Protein into Joints, Open Approach (ICD-10-PCS; 2019-10-12)
PROC: 00NY0ZZ Release Lumbar Spinal Cord, Open Approach (ICD-10-PCS; 2019-10-12)
PROC: 8E0W0CZ Robotic Assisted Procedure of Trunk Region, Open Approach (ICD-10-PCS; 2019-10-12)
PROC: 4A1004G Monitoring of Central Nervous Electrical Activity, Intraoperative, Open Approach (ICD-10-PCS; 2019-10-12)
PROC: 0SG10K1 Fusion of 2 or more Lumbar Vertebral Joints with Nonautologous Tissue Substitute, Posterior Approach, Posterior Column, Open Approach (ICD-10-PCS; principal; 2019-10-12 13:00)
DX: M48.07 Spinal stenosis, lumbosacral region (principal); N17.0 Acute kidney failure with tubular necrosis; M54.16 Radiculopathy, lumbar region; M19.90 Unspecified osteoarthritis, unspecified site; E03.9 Hypothyroidism, unspecified; G89.4 Chronic pain syndrome; E87.5 Hyperkalemia; I10 Essential (primary) hypertension; Z82.49 Family history of ischemic heart disease and other diseases of the circulatory system; Z82.5 Family history of asthma and other chronic lower respiratory diseases; Z79.899 Other long term (current) drug therapy; Z88.1 Allergy status to other antibiotic agents; Z88.2 Allergy status to sulfonamides; Z88.8 Allergy status to other drugs, medicaments and biological substances; M54.41 Lumbago with sciatica, right side; I95.9 Hypotension, unspecified
CPT/HCPCS: 36415; 71045; 72100; 72131; 72148; 72197; 76770; 80048; 80053; 81001; 82436; 83036; 83880; 84132; 84133; 84145; 84300; 84443; 85025; 85610; 85730; 86850; 86900; 87077; 87086; 87186; 93005; 93306; 95938; 95941; 96374; 96375; 99285; C1713; G0378; J0690; J1100; J1170; J1644; J1940; J2250; J2405; J2704; J2710; J3010; J3360; J3370; 92523-GN; A9575; C1762; J0330; J1030; J2270; J7030; J7050

== ENCOUNTER → 2020-01-27 | Outpatient (CLI) | payer MEDICARE ==
[~2020-01-27] MED LIST changes: +BISA10SU4 PR; +CHOL10003 PO; +DULO20CA18 PO; +GABA300C PO; +LEVO50TA PO; +OXYcodone/APAP 5/325MG PO; +PANT20TA4 PO; +POLY17PO5 PO; +SENN-193 PO; +TIZA4TAB2 PO
== END | disposition home or self-care (01) ==
LOC: STAR 11:04
PROVIDERS: ATTEND Anesthesiology
DX: Z01.89 Encounter for other specified special examinations (principal)
CPT/HCPCS: 71046; 93005

== ENCOUNTER 2020-02-26 12:46 | Emergency (ER) | payer MEDICARE ==
[~2020-02-26] VITALS: Ht 154.9 cm; Wt 70.5 kg
[2020-02-26 12:56] VITALS: BP 160/73
== END 2020-02-26 15:54 | disposition home or self-care (01) ==
LOC: ED 15:16
DX: M54.5 Low back pain (principal); G89.29 Other chronic pain; M19.90 Unspecified osteoarthritis, unspecified site; W18.30XA Fall on same level, unspecified, initial encounter; Y93.89 Activity, other specified; Y92.009 Unspecified place in unspecified non-institutional (private) residence as the place of occurrence of the external cause; Y99.8 Other external cause status
CPT/HCPCS: 72220; 99283